=== PATIENT | female | born 1985 | race Caucasian/White ===

== ENCOUNTER 2016-11-09 16:01 | Emergency (ER) | payer OTHER ==
[2016-11-09 16:05] VITALS: BP 120/71; BMI 33.3
== END 2016-11-09 17:43 | disposition left against medical advice (07) ==
LOC: ER 16:08
DX: R10.84 Generalized abdominal pain (principal)
CPT/HCPCS: 99281

== ENCOUNTER → 2016-11-20 | Outpatient (CLI) | payer OTHER ==
[2016-11-09 16:05] VITALS: BP 120/71
--- NOTE | 2016-11-20 09:57 | US ---
ULTRASOUND OF THE ABDOMEN HISTORY: Right upper quadrant pain Comparison: None Technique: Multiple craig scale and color flow Doppler images of the abdomen were obtained. Findings: Overall study is limited by overlying bowel gas. The liver is normal in echotexture and size. No foc al mass. No intrahepatic bile duct dilatation. Suspicion of a wall echo shadow complex of the gallbla dder with some shadowing. The technologist did not report a positive sonographic Kaplan's sign. The c ommon bile duct measures 4 mm. The spleen is normal in size. The pancreas is obscured by bowel gas. The kidneys are normal in echogenicity. The right kidney measures 10.0 cm. No focal mass, hydronephro sis, or stones identified. The left kidney measures 9.8 cm. No focal mass, hydronephrosis, or stone identified. The visualized portions of the abdominal aorta are normal in size without aneurysmal dilatation. The inferior vena cava is unremarkable as well. IMPRESSION: 1. Suggestion of wall echo shadow complex of the gallbladder which may represent a large shadowing st one within the gallbladder. No evidence of acute cholecystitis. Reported By:
== END ==
LOC: RAD 08:14
PROVIDERS: ATTEND Student in an Organized Health Care Education/Training Program
DX: R10.11 Right upper quadrant pain (principal)
CPT/HCPCS: 76700

== ENCOUNTER 2016-12-13 08:19 | Day surgery (SDC) | payer OTHER ==
[2016-12-13] MEDS ORDERED: NS 50 ML IV + SPIKE MINIBAG* 100 ML IV ONE (09:06)
[2016-12-13] MEDS ORDERED: ANCEF VIAL 1 GM ONE (09:06)
[2016-12-13] MEDS ORDERED: NS 1000 ML 1,000 ML ONE (09:06)
[2016-12-13 10:09] LABS: BASOPHILS # (AUTO) 0.1 X10^3/uL (0.0-0.1); BASOPHILS % (AUTO) 0.5 % (0.2-1.0); EOSINOPHILS # (AUTO) 0.2 x10^3/uL (0.0-0.2); EOSINOPHILS % (AUTO) 1.7 % (0.9-2.9); HEMATOCRIT 42.2 % (36.0-47.0); HEMOGLOBIN 14.4 g/dL (12.0-16.0); LYMPHOCYTES # (AUTO) 2.4 X10^3/uL (1.3-2.9); LYMPHOCYTES % (AUTO) 20.6 % (21.0-51.0); MEAN CORPUSCULAR HEMOGLOBIN 29.1 pg (27.0-34.0); MEAN CORPUSCULAR HGB CONC 34.2 g/dL (33.0-35.0); MEAN CORPUSCULAR VOLUME 85.1 fL (80.0-100.0); MEAN PLATELET VOLUME 8.2 fL (7.4-11.0); MONOCYTES # (AUTO) 0.7 x10^3/uL (0.3-0.8); NEUTROPHILS # (AUTO) 8.4 x10^3/uL (2.2-4.8); NEUTROPHILS % (AUTO) 71.2 % (42.0-75.0); PLATELET COUNT 245 X10^3/uL (150.0-450.0); RED BLOOD COUNT 4.96 X10^6/uL (3.5-5.4); WHITE BLOOD COUNT 11.9 X10^3/uL (3.6-10.0)
[2016-12-13 10:18] LABS: ALANINE AMINOTRANSFERASE 18 Units/L (12-78); ALBUMIN 3.4 g/dL (3.4-5.0); ALKALINE PHOSPHATASE 78 Units/L (46-116); ASPARTATE AMINO TRANSFERASE 10 Units/L (15-37); BLOOD UREA NITROGEN 10 mg/dL (7-18); CALCIUM 8.9 mg/dL (8.5-10.1); CARBON DIOXIDE 28.6 mmol/L (21-32); CHLORIDE 107 mmol/L (98-107); CREATININE 0.71 mg/dL (0.55-1.02); SODIUM 143 mmol/L (136-145); TOTAL PROTEIN 6.6 g/dL (6.4-8.2); eGFR BLACK RACES > 60 (>60); eGFR NON BLACK RACES > 60 (>60)
[2016-12-13] MEDS ORDERED: FENTANYL INJ 250 mcg ONE (12:59)
[2016-12-13] MEDS ORDERED: XYLOCAINE-MPF 1% ONE (13:07)
[2016-12-13] MEDS ORDERED: XYLOCAINE 1% and EPINEPHRINE 1:100,000 ONE (13:08)
[2016-12-13] MEDS ORDERED: MARCAINE 0.25% INJ ONE (13:08)
[2016-12-13] MEDS ORDERED: NS IRRIGATION 3000 ML 3,000 ML IR ONE (13:27)
[2016-12-13] MEDS ORDERED: DILAUDID INJ ONE (13:41)
[2016-12-13] MEDS ORDERED: LR 1000 ML IV 1,000 ML IV ONE (13:41)
--- NOTE | 2016-12-13 14:34 | OR.GENERIC ---
Post-Op Note Generic - Post-Op Note Operative Report: Operative Report Date of Operation: December 13, 2016 Pre-Operative Diagnosis: Cholelithiasis. Post-Operative Diagnosis: 1. Chronic cholecystitis. 2. Cholelithiasis. Procedure: Laparoscopic cholecystectomy. Surgeon: Domo Hammonds MD. Program Management Manager: Brett Xiao CRNA. Specimen: Gallbladder. Estimated blood loss: Minimal. Complications: None. Summary: The patient is a 31 year old female who presented with symptomatic cholelithiasis. The patient was offered cholecystectomy. The risk and benefits of the procedure including difficulty with anesthesia, bleeding, infection, conversion to open procedure, bile leak, hernia formation, DVT, as well as PE were discussed with the patient. The patient understood these risks and requested the procedure. On December 13, 2016, the patient was brought to the operative theatre. A time out was performed verifying the patient and procedure. The patient received Ancef for pre-operative antibiosis. After satisfactory induction of general endotracheal anesthesia, the abdomen was prepped with Chloraprep and draped in the usual sterile fashion. The skin and subcutaneous tissue inferior to the umbilicus was anesthetized using local anesthetic. The skin was incised sharply. A 12 mm trocar was placed though the incision and into the peritoneal cavity using the Optiview technique. Carbon dioxide was infiltrated through this trocar to obtain a pneumoperitoneum of 15 mm Hg. A camera was placed through this trocar and swept in all directions. No injury was seen from entering the peritoneal cavity. A site was selected in the subxiphoid location for our 2nd trocar. The skin and fascia was anesthetized using local anesthetic. The skin was incised sharply. A 5 mm trocar was placed into the peritoneal cavity under direct visualization. In a similar manner, two additional 5 mm trocars were placed. The first was placed in the mid- clavicular line approximately 2 fingerbreadths inferior to the left costal margin and a second in the anterior axillary line approximately 2 fingerbreadths inferior to the left costal margin. The patient was placed in reverse Trendelenburg and rotated to the patients left. The gallbladder was grasped at the fundus and elevated cephalad and slightly lateral. Omental attachments were taken down using blunt dissection and electrocautery. The peritoneum on the medial and lateral aspects of the infundibulum of the gallbladder was scored using hook electrocautery. Using blunt dissection, the cystic artery and duct were isolated. The critical view of safety was obtained. Both of these structures were divided between endoclips. The gallbladder was dissected free using hook electrocautery. The gallbladder was placed in an endobag and removed through the umbilical trocar site. This required lengthening the fascial incision to accommodate the larger gallstones in the gallbladder. The trocar and camera were placed back inside the abdomen. Our clips were noted in good position. At this point, the 5 mm trocars were removed under direct visualization. No bleeding was seen. The umbilical trocar was then removed and pneumoperitoneum released. The fascia at the umbilicus was closed using interrupted 0-Vicryl sutures x 6. The skin edges at all incisions were re-approximated using inverted, interrupted 4-0 Monocryl sutures. Benzoin and Steri-strips were placed. Sterile dressings were placed. The patient was awakened and taken to the recovery room in stable condition. There were no complications. All counts were correct.
[2016-12-13] MEDS ORDERED: ZOFRAN INJ 4 MG VIAL IVP PRN (14:35)
[2016-12-13] MEDS ORDERED: REGLAN INJ 10 MG VIAL IVP PRN (14:35)
[2016-12-13] MEDS ORDERED: DILAUDID INJ IVP PRN (14:35)
[2016-12-13] MEDS ORDERED: PHENERGAN INJ 25 MG IVP PRN (14:35)
[2016-12-13] MEDS ORDERED: BENADRYL INJ 50 MG VIAL IVP PRN (14:35)
[2016-12-13] MEDS ORDERED: PERCOCET TAB 5/325 MG ONE (15:36)
[2016-12-13] MEDS ORDERED: ZOFRAN INJ 4 MG VIAL ONE ×2 (15:36→16:28)
[2016-12-13 16:14] VITALS: BP 111/56
[2016-12-13] MEDS ORDERED: LTA KIT LIDOCAINE 4% ONE (16:28)
[2016-12-13] MEDS ORDERED: NEOSTIGMINE INJ ONE (16:28)
[2016-12-13] MEDS ORDERED: VERSED ONE (16:28)
[2016-12-13] MEDS ORDERED: SUPRANE IN ONE (16:28)
[2016-12-13] MEDS ORDERED: ROBINUL ONE (16:28)
[2016-12-13] MEDS ORDERED: NORCURON INJ 10 MG VIAL ONE (16:28)
[2016-12-13] MEDS ORDERED: XYLOCAINE 2 % (PLAIN) ONE (16:28)
[2016-12-13] MEDS ORDERED: QUELICIN (OR ANECTINE) ONE (16:28)
[2016-12-13] MEDS ORDERED: DIPRIVAN VIAL ONE (16:28)
== END 2016-12-13 16:10 | disposition home or self-care (01) ==
LOC: SURG1 08:19
PROVIDERS: ATTEND Student in an Organized Health Care Education/Training Program
PROC: 0FT44ZZ Resection of Gallbladder, Percutaneous Endoscopic Approach (ICD-10-PCS; principal; 2016-12-13 09:45)
DX: K80.10 Calculus of gallbladder with chronic cholecystitis without obstruction (principal)
CPT/HCPCS: 36415; 80053; 85025; A4216; A4222; S0020; J0330; J0690; J1170; J2001; J2250; J2405; J2710; J3010; J3490; J7120